=== PATIENT | female | born 1945 | race Caucasian/White ===

== ENCOUNTER → 2019-10-30 | Outpatient (CLI) | payer MEDICARE ==
[~2019-10-30] MED LIST: ALPR0.25 PO; HYDR1TAB15 PO; LAMO200T3 PO; LEVO50TA5 PO; LEVO75TA5 PO; LISI-167 PO; PANT40TA5 PO
== END | disposition home or self-care (01) ==
LOC: LAB 15:41
PROVIDERS: ATTEND Surgery
DX: E83.51 Hypocalcemia (principal)
CPT/HCPCS: 36415; 82310